=== PATIENT | male | born 1970 | race Caucasian/White ===

== ENCOUNTER → 2018-02-26 | Outpatient (CLI) | payer OTHER ==
--- NOTE | 2018-02-26 11:04 | US ---
EXAMINATION TYPE: US liver DATE OF EXAM: 02/26/2018 COMPARISON: NONE CLINICAL HISTORY: R94.5 Abn liver function studies. Elevated liver enzymes EXAM MEASUREMENTS: Liver Length: 14.8 cm Gallbladder Wall: 0.3 cm CBD: 0.4 cm Right Kidney: 10.7 x 5.3 x 5.0 cm limited exam due to midline bowel gas. Pancreas: visualized portions wnl Liver: difficult to penetrate Mild coarsened heterogenous echotexture of the hepatic parenchyma, whi ch most commonly corresponds to hepatic steatosis and limits evaluation for underlying hepatic masses . Gallbladder: no stones seen Evidence for sonographic Payne's sign: No CBD: wnl Right Kidney: No hydronephrosis or masses seen IMPRESSION: Sonographic findings most commonly related to hepatic steatosis appearing overall mild in degree. Correlation with results of the abnormal liver function tests is recommended.
== END | disposition home or self-care (01) ==
LOC: RADUSMAIN 08:26
PROVIDERS: ATTEND Family Medicine
DX: R94.5 Abnormal results of liver function studies (principal)
CPT/HCPCS: 76705

== ENCOUNTER 2019-07-25 06:48 | Day surgery (SDC) | payer OTHER ==
[2019-07-22 10:19] VITALS: BMI 33.0
[~2019-07-25 06:48] MED LIST: LACTATED RINGERS 1,000 ML IV SCH; LIDOCAINE 1% 20 ML VIAL (10MG/ML) FOR IV START INTRADERMA PRN
[2019-07-25 07:20] VITALS: TEMP 98.2
[2019-07-25 07:30] LABS: Glucose,Whole Blood 126 mg/dL (75-99)
[2019-07-25] MEDS ORDERED: PROPOFOL 10 MG/ML 20 ML VIAL IV ONE (07:38)
[2019-07-25 08:09] VITALS: RESP 16
--- NOTE | 2019-07-25 08:11 | P.PCN ---
Date of Procedure: 07/25/19 Description of Procedure: BRIEF HISTORY: Patient is a 49-year-old pleasant male scheduled for an elective colonoscopy as a part of abnormal findings, positive Cologard as outpatient setting. Denies any change in bowel habits, blood per rectum or abdominal pain. No family history of colon cancer. No prior colonoscopies reported. PROCEDURE PERFORMED: Colonoscopy with polypectomy. PREOPERATIVE DIAGNOSIS: Abnormal findings, positive Cologard, no prior colonoscopy reported. ESTIMATED BLOOD LOSS: Minimal. IV sedation per Anesthesia. PROCEDURE: After informed consent was obtained, the patient, was brought into the endoscopy unit. IV sedation was administered by Anesthesia under continuous monitoring. Digital rectal examination was normal. Initially the Olympus CF-190 flexible video colonoscope was then inserted in the rectum, gradually advanced into the cecum without any difficulty. Careful examination was performed as the scope was gradually being withdrawn. Ileocecal valve and the appendiceal orifice were visualized and appeared normal. Prep was excellent. Mucosa of the cecum, ascending colon, transverse colon, descending colon, sigmoid colon, and rectum appeared normal. A sessile 3 mm transverse colon polyp was removed with cold forcep polypectomy. Retroflexion was performed in the rectum and no lesions were seen, low-grade internal hemorrhoids noted. The patient tolerated the procedure well. IMPRESSION: Diminutive transverse colon polyp removed with cold forceps. Low-grade internal hemorrhoids. RECOMMENDATIONS: Findings of this examination were discussed with the patient and his girlfriend. Okay to resume diet. Okay to resume medications. Await pathology from polypectomy. Anticipate repeat colonoscopy in 5 years for history of polyps pending pathology from polypectomy.
[2019-07-25 08:33] VITALS: BP 142/83; PULSE 74
== END 2019-07-25 08:55 | disposition home or self-care (01) ==
LOC: ORWHC2ENDO 06:48
PROVIDERS: ATTEND Internal Medicine
DX: D12.3 Benign neoplasm of transverse colon (principal); K64.8 Other hemorrhoids; Z79.84 Long term (current) use of oral hypoglycemic drugs; E11.9 Type 2 diabetes mellitus without complications
CPT/HCPCS: 88305; 45380; J2704

== ENCOUNTER → 2021-10-11 | Outpatient (CLI) | payer OTHER ==
--- NOTE | 2021-10-11 20:09 | MR ---
EXAMINATION TYPE: MR knee LT wo con DATE OF EXAM: 10/11/2021 COMPARISON: None HISTORY: Left inner knee pain for 3 weeks TECHNIQUE: Multiplanar, multisequence imaging of the left knee is performed without IV contrast. FINDINGS: MEDIAL MENISCUS: Anterior and posterior horns are intact without tear, there is some increased intrin sic signal within the posterior horn the medial meniscus without extension to the articular surface. LATERAL MENISCUS: Anterior and posterior horns are intact without tear. CRUCIATE LIGAMENTS: Some increased signal within the anterior cruciate ligament could be due to strai n or partial tear COLLATERAL LIGAMENTS: The medial collateral ligament, specifically axial image 19, there is some incr eased signal consistent with a partial tear, coronal image #20 and 19 EXTENSOR MECHANISM: Visualized quadriceps and patellar tendons are intact. EFFUSION: Suprapatellar joint effusion is present POPLITEAL CYST: No popliteal/niño cyst. TRICOMPARTMENT SPACES: Maintained CARTILAGE: Maintained BONE MARROW SIGNAL: No focal abnormal marrow signal is appreciated. OTHER: Prepatellar soft tissue edema is present within the subcutaneous fat IMPRESSION: Strain versus partial tear medial collateral ligament. Joint effusion. Possible strain or partial tea r of the anterior cruciate ligament
== END | disposition home or self-care (01) ==
LOC: RADMRIMAIN 18:00
PROVIDERS: ATTEND Physician Assistant
DX: M25.462 Effusion, left knee (principal)

== ENCOUNTER → 2024-04-01 | Outpatient (CLI) | payer OTHER | END | disposition home or self-care (01) | LOC: LABPRL 12:00 | PROVIDERS: ATTEND Family Medicine | DX: E11.69 Type 2 diabetes mellitus with other specified complication (principal) | CPT/HCPCS: 80053; 80061; 83036; 85025 ==